=== PATIENT | female | born 1985 | race Caucasian/White ===

== ENCOUNTER 2017-02-06 16:35 | Emergency (ER) | payer OTHER ==
[2017-02-06 17:02] VITALS: BP 128/82; PULSE 90; TEMP 98.4; BMI 54.8
[2017-02-06] MEDS ORDERED: IBUPROFEN 400 MG TABLET (FP) PO ONE ×2 (17:05→17:09)
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
== END 2017-02-06 17:15 | disposition home or self-care (01) ==
LOC: FER 16:35
DX: S43.409A Unspecified sprain of unspecified shoulder joint, initial encounter (principal); V43.52XA Car driver injured in collision with other type car in traffic accident, initial encounter; Y93.89 Activity, other specified; Y92.410 Unspecified street and highway as the place of occurrence of the external cause; F17.210 Nicotine dependence, cigarettes, uncomplicated
CPT/HCPCS: 99282-25

== ENCOUNTER 2023-05-08 10:32 | Emergency (ER) | payer OTHER ==
[2023-05-08 10:44] VITALS: BP 116/60; PULSE 68; RESP 20; TEMP 98.3; BMI 51.2
[2023-05-08] MEDS ORDERED: ONDANSETRON *ODT* 4 MG TABLET SL ONE (11:22)
[2023-05-08] MEDS ORDERED: ACETAMINOPHEN 500 MG TABLET (FP) PO ONE (11:23)
[2023-05-08] MEDS ORDERED: ONDANSETRON *ODT* 4 MG TABLET ONE (11:35)
[2023-05-08] MEDS ORDERED: ACETAMINOPHEN 500 MG TABLET (FP) ONE (11:35)
== END 2023-05-08 11:51 | disposition home or self-care (01) ==
LOC: JERFT 10:32
DX: R05.9 Cough, unspecified (principal); R07.0 Pain in throat; M79.10 Myalgia, unspecified site; R68.83 Chills (without fever); R09.81 Nasal congestion; R11.2 Nausea with vomiting, unspecified; U07.1 COVID-19
CPT/HCPCS: 0241U-QW; 87651; 99283-25; Q0162

== ENCOUNTER 2023-05-14 11:53 | Emergency (ER) | payer OTHER ==
[2023-05-14 12:17] VITALS: BP 119/81; PULSE 74; RESP 14; TEMP 98.3; BMI 52.1
== END 2023-05-14 13:06 | disposition home or self-care (01) ==
LOC: JERFT 11:53
DX: U07.1 COVID-19 (principal); R19.7 Diarrhea, unspecified
CPT/HCPCS: 99282-25